=== PATIENT | female | born 1960 | race Caucasian/White ===

== ENCOUNTER 2020-06-10 15:39 | Inpatient (IN) | payer BC, OTHER ==
[~2020-06-10] VITALS: Ht 165.1 cm; Wt 84.2 kg
[2020-06-10] MEDS ORDERED: LORazepam 2 MG/ML, 1ML ONE (16:29)
[2020-06-10 16:30] LABS: BASOPHILS % (AUTO) 1 % (0-1); EOSINOPHILS % (AUTO) 1 % (1-7); LYMPHOCYTES % (AUTO) 29 % (22-44); MD NO; MEAN CORPUSCULAR HGB CONC 34.1 g/dL (32.4-35.8); MEAN PLATELET VOLUME 7.1 fL (7.4-10.4); MONOCYTES % (AUTO) 7 % (2-9); NEUTROPHILS % (AUTO) 63 % (42-75); PLATELET COUNT 434 x10^3/uL (130-400); RED BLOOD COUNT 4.05 x10^6/uL (3.82-5.3); RED CELL DISTRIBUTION WIDTH 14.2 % (9.6-15.2)
[2020-06-10] MEDS ORDERED: LORazepam 2 MG/ML, 1ML IVPush ONE (16:30)
[2020-06-10] MEDS ORDERED: SODIUM CHLORIDE FLUSH 10ML SYR IVF ONE (16:30)
[2020-06-10 16:42] LABS: ALBUMIN 4.4 g/dL (3.4-5.0); ANION GAP 9 mmol/L (5-15); CHLORIDE 107 mmol/L (98-107); CREATININE 1.03 mg/dL (0.55-1.02)
[2020-06-10] MEDS ORDERED: ONDANSETRON 2MG/ML, 2ML ONE ×2 (16:48→20:10)
[2020-06-10] MEDS ORDERED: ONDANSETRON 2MG/ML, 2ML IVPush ONE (17:00)
--- NOTE | 2020-06-10 17:03 | NUR ---
This pt presents with large hernia located above her vagina. Pt states she doesn't know when it started because "it hadn't been a problem." Pt has new onset N/V today. Pt placed in [facility]. Call light in reach. Vomit bag in hand. Pt has thrown up twice prior to [place].
[2020-06-10] MEDS ORDERED: SODIUM CHLORIDE 0.9% 1,000ML IVBOLUS ONE (17:30)
[2020-06-10] MEDS ORDERED: OMNIPAQUE 180 MG/ML, 10ML VIAL ONE (17:53)
[2020-06-10] MEDS ORDERED: MORPHINE SULFATE 4 MG/ML, 1ML ONE (18:07)
[2020-06-10] MEDS ORDERED: EPINEPHRINE 1 MG/ML, 1ML ONE (18:09)
[2020-06-10] MEDS ORDERED: BUPIVACAINE/PF 0.25% ONE (18:09)
[2020-06-10] MEDS ORDERED: FENTANYL PF 250 MCG/5ML ONE (18:27)
[2020-06-10] MEDS ORDERED: LABETALOL 5MG/ML, 20ML IV PRN (18:30)
[2020-06-10] MEDS ORDERED: hydrALAzine 20 MG/ML, 1ML IV PRN (18:30)
[2020-06-10] MEDS ORDERED: PROMETHAZINE 25 MG/ML, 1ML IVPush PRN (18:30)
[2020-06-10] MEDS ORDERED: MORPHINE SULFATE 4 MG/ML, 1ML IVPush PRN (18:30)
[2020-06-10] MEDS ORDERED: FENTANYL PF 100 MCG/2ML IV PRN (18:30)
[2020-06-10] MEDS ORDERED: HYDROmorphone 1 MG/ML, 1ML INJ IVPush PRN (18:30)
[2020-06-10] MEDS ORDERED: HALOPERIDOL 5 MG/ML IV PRN (18:30)
[2020-06-10] MEDS ORDERED: OXYcodone 5 MG/5 ML ORAL.SOL UDC PO PRN ×2 (18:30→22:30)
[2020-06-10] MEDS ORDERED: DIPHENHYDRAMINE 50 MG/ML, 1ML IVPush PRN (18:30)
[2020-06-10] MEDS ORDERED: BUPIVACAINE/PF-EPI 0.25% 1:200K IV ONE (18:42)
[2020-06-10] MEDS ORDERED: PHENYLEPHRINE 10 MG/ML ONE (18:56)
[2020-06-10] MEDS ORDERED: DEXAMETHASONE 4 MG/ML, 1ML ONE (18:56)
[2020-06-10] MEDS ORDERED: ROCURONIUM 10MG/ML,5ML ONE (20:10)
[2020-06-10] MEDS ORDERED: NEOSTIGMINE 1 MG/ML, 10ML ONE (20:10)
[2020-06-10] MEDS ORDERED: SUCCINYLCHOLINE 20 MG/ML, 10ML ONE (20:10)
[2020-06-10] MEDS ORDERED: GLYCOPYRROLATE 0.2MG/1ML, 5ML ONE (20:10)
[2020-06-10] MEDS ORDERED: CEFAZOLIN 1,000 MG ONE (20:10)
[2020-06-10] MEDS ORDERED: PROPOFOL 10 MG/ML, 20ML ONE (20:10)
[2020-06-10] MEDS ORDERED: CEFOTETAN 1 GM ONE (20:13)
[2020-06-10] MEDS ORDERED: OXYcodone 5 MG/5 ML ORAL.SOL UDC ONE (21:05)
[2020-06-10] MEDS ORDERED: ACETAMINOPHEN 650 MG/20.3 ML UDC ONE (21:05)
[2020-06-10] MEDS ORDERED: DIPHENHYDRAMINE 50 MG/ML, 1ML IV PRN (22:30)
[2020-06-10] MEDS ORDERED: DIPHENHYDRAMINE 25 MG CAPSULE PO PRN (22:30)
[2020-06-10] MEDS ORDERED: KETOROLAC 30 MG/1 ML IV PRN (22:30)
[2020-06-10] MEDS ORDERED: HYDROmorphone 2 MG/ML, 1ML IVPush PRN (22:30)
[2020-06-10] MEDS ORDERED: ONDANSETRON 2MG/ML, 2ML IV PRN (22:30)
[2020-06-10] MEDS: D5%-0.45NACL+KCL 20MEQ 1,000 ML IV SCH (23:11)
[2020-06-10] MEDS: ACETAMINOPHEN 500 MG TABLET PO SCH (23:12)
[2020-06-11 00:02] VITALS: BP 110/71
[2020-06-11 03:54] VITALS: BP 118/76
[2020-06-11] MEDS: ACETAMINOPHEN 500 MG TABLET PO SCH ×4 (04:58→22:08)
[2020-06-11 05:19] LABS: MEAN CORPUSCULAR HEMOGLOBIN 33.8 pg (27.0-34.8); MEAN CORPUSCULAR HGB CONC 33.7 g/dL (32.4-35.8); MEAN PLATELET VOLUME 7.3 fL (7.4-10.4); PLATELET COUNT 379 x10^3/uL (130-400); RED BLOOD COUNT 3.45 x10^6/uL (3.82-5.3); RED CELL DISTRIBUTION WIDTH 14.4 % (9.6-15.2)
[2020-06-11 05:28] LABS: ALBUMIN 3.3 g/dL (3.4-5.0); ANION GAP 4 mmol/L (5-15); CALCIUM 8.4 mg/dL (8.5-10.1); CHLORIDE 109 mmol/L (98-107); CREATININE 1.14 mg/dL (0.55-1.02)
[2020-06-11 06:17] LABS: MD YES
[2020-06-11 06:18] LABS: BAND#(MANUAL) 0.13 x10^3/uL; BANDS%(MANUAL) 1 % (0-7); LYMPH#(MANUAL) 1.25 x10^3/uL (1-3.4); LYMPHS% (MANUAL) 10 % (22-44); MONOS#(MANUAL) 1.13 x10^3/uL (0.3-2.7); MONOS% (MANUAL) 9 % (2-9); SEGS% (MANUAL) 80 % (42-75)
[2020-06-11 06:19] LABS: <PLATELET ESTIMATE> ADEQUATE; <PLT MORPHOLOGY> NORMAL PLT MORPH; <RBC MORPHOLOGY> NORMAL
[2020-06-11 07:04] VITALS: BP 103/65
[2020-06-11] MEDS: D5%-0.45NACL+KCL 20MEQ 1,000 ML IV SCH ×2 (09:05→19:18)
[2020-06-11] MEDS: ENOXAPARIN 40 MG/0.4 ML SQ SCH (09:06)
[2020-06-11 12:57] VITALS: BP 93/56
[2020-06-11 19:21] VITALS: BP 97/63
[2020-06-12 01:30] VITALS: BP 101/68
[2020-06-12] MEDS: ACETAMINOPHEN 500 MG TABLET PO SCH ×2 (04:31→10:48)
[2020-06-12] MEDS: D5%-0.45NACL+KCL 20MEQ 1,000 ML IV SCH ×2 (04:32→15:30)
[2020-06-12 05:27] LABS: BASOPHILS % (AUTO) 1 % (0-1); EOSINOPHILS % (AUTO) 1 % (1-7); LYMPHOCYTES % (AUTO) 20 % (22-44); MEAN CORPUSCULAR HEMOGLOBIN 34.4 pg (27.0-34.8); MEAN CORPUSCULAR HGB CONC 34.2 g/dL (32.4-35.8); MONOCYTES % (AUTO) 9 % (2-9); NEUTROPHILS % (AUTO) 70 % (42-75); PLATELET COUNT 337 x10^3/uL (130-400); RED BLOOD COUNT 3.11 x10^6/uL (3.82-5.3); RED CELL DISTRIBUTION WIDTH 14.6 % (9.6-15.2)
[2020-06-12 05:31] LABS: ANION GAP 2 mmol/L (5-15); CALCIUM 8.1 mg/dL (8.5-10.1); CHLORIDE 112 mmol/L (98-107)
[2020-06-12 05:39] LABS: MD NO
[2020-06-12 06:52] VITALS: BP 106/74
[2020-06-12] MEDS: ENOXAPARIN 40 MG/0.4 ML SQ SCH (08:09)
[2020-06-12 12:43] VITALS: BP 108/69
[2020-06-12] MEDS ORDERED: OXYC5TAB3 PO (16:23)
== END 2020-06-12 16:42 | disposition home or self-care (01) | DRG 352 ==
LOC: ED 17:15 → EDIP 17:24 → ED 17:28 → 4NW 21:40 → DCLOUNGE 06-12 16:31
PROVIDERS: ADMIT Surgery; ATTEND Surgery
PROC: 0YU60JZ Supplement Left Inguinal Region with Synthetic Substitute, Open Approach (ICD-10-PCS; principal; 2020-06-10 18:00)
DX: K40.30 Unilateral inguinal hernia, with obstruction, without gangrene, not specified as recurrent (principal); Z20.828 Contact with and (suspected) exposure to other viral communicable diseases
CPT/HCPCS: 36415; 74177; 80048; 82040; 83605; 85025; 87635; 88302; 96374; 99285; G0378; J0171; J0690; J1100; J1650; J2405; J2704; J2710; J3010; Q9965; C1781; J0330; J2060; J2270; J2370; J3480; J7030

== ENCOUNTER → 2020-07-18 | Outpatient (CLI) | payer OTHER ==
[~2020-07-18] MED LIST: OMNIPAQUE 350 MG/ML, 100ML BOTTLE ONE; OXYC5TAB98 PO
== END | disposition home or self-care (01) ==
LOC: CFH 08:43
PROVIDERS: ATTEND Surgery
DX: Z09 Encounter for follow-up examination after completed treatment for conditions other than malignant neoplasm (principal)
CPT/HCPCS: 74177; 82565; Q9967